=== PATIENT | female | born 1965 | race Caucasian/White ===

== ENCOUNTER 2022-05-03 17:33 | Emergency (ER) | payer SELFPAY ==
[~2022-05-03] VITALS: Ht 162.6 cm; Wt 80.0 kg
[2022-05-03 17:37] VITALS: BP 165/86
[2022-05-03] MEDS: METHOCARBAMOL 500MG TABLET PO ONE (19:07)
[2022-05-03] MEDS: IBUPROFEN 600MG TABLET PO ONE (19:08)
[2022-05-03] MEDS ORDERED: IBUP-2029 MT (19:23)
[2022-05-03] MEDS ORDERED: METH-653 MT (19:23)
== END 2022-05-03 20:18 | disposition home or self-care (01) ==
LOC: ER 17:33
DX: R07.89 Other chest pain (principal); M62.838 Other muscle spasm
CPT/HCPCS: 71045; 99283